=== PATIENT | female | born 1940 | race Caucasian/White ===

== ENCOUNTER → 2017-09-25 09:45 | Outpatient (CLI) | payer MEDICARE, BC, SELFPAY ==
--- NOTE | 2017-09-25 09:49 | MM_ITS ---
MM Dig screening mamm BI w/CAD CAD Screening COMPARISON: Digital mammograms 08/15/2013 and 09/04/2014 INDICATION: There is no personal or family history of breast cancer TECHNIQUE: Standard CC and MLO images were obtained. R2 CAD reviewed. FINDINGS: Mild to moderate scattered fiber glandular densities are seen throughout both breasts and the findings are bilateral and symmetrical. There are couple benign-appearing calcifications in each breast. There is no suspicious lesion and there are no suspicious microcalcifications. IMPRESSION: Fibrofatty parenchyma no suspicious lesion seen BI-RADS Category: 2 Benign Finding(s) RECOMMENDED FOLLOW-UP: 1YR - 1 YEAR FOLLOW-UP (A letter has been sent to the patient regarding results of the study.)
== END ==
PROVIDERS: Family Provider Family Medicine; PCP Family Medicine; Visit Provider Family Medicine
DX: Z12.31 Encounter for screening mammogram for malignant neoplasm of breast (principal)
CPT/HCPCS: 77067

== ENCOUNTER → 2018-03-21 09:08 | Outpatient (POV) | payer MEDICARE, BC, SELFPAY | PROVIDERS: Visit Provider Dermatology | DX: Z00.00 Encounter for general adult medical examination without abnormal findings (principal) ==

== ENCOUNTER → 2018-09-27 10:50 | Outpatient (CLI) | payer MEDICARE, BC, SELFPAY ==
--- NOTE | 2018-09-27 10:56 | MM_ITS ---
MM Dig screening mamm BI w/CAD ORDERING PHYSICIAN : Caridad Newton MD PATIENT AGE: 77 years GENDER: Female COMPARISON: July there were 2018/MRI INDICATION: ITS.REASON: SCREENING TECHNIQUE: Standard CC and MLO images were obtained. R2 CAD reviewed. FINDINGS: Moderate residual fibroglandular elements anterior right and left breast there is similar and unchanged since previous studies on cc views..... Otherwise fatty replacement throughout the deep breast bilaterally. RIGHT BREAST:Stable right breast Today's study show no new areas of concern. No interval change. No dominant mass nor suspicious calcifications either breast. Current fibroglandular pattern with minimal LEFT BREAST: On MLO view there is a area of slight increased density central breast, labeled X. Measures up to 8 x 9 mm size.-Most likely is a summation shadow but would suggest spot views to further evaluate since it is more evident than last years/previous years studies.. Although The MLO view from 2009 does show somewhat similar appearance Suggest spot MLO, 90 degree, with CC view of lateral left breast IMPRESSION: ------- Left mammogram,: . Minimal area of relative focal density on MLO view only-most likely a summation shadow, but would benefit from spot views to further evaluate Right breast. Stable follow-up in one year BI-RADS Category: 0 Need Additional Imaging Evaluation RECOMMENDED FOLLOW-UP: IMM - IMMEDIATE FOLLOW-UP RECOMMENDED Spot views left breast (A letter has been sent to the patient regarding results of the study.)
== END ==
PROVIDERS: PCP Family Medicine; Visit Provider Family Medicine
DX: Z12.31 Encounter for screening mammogram for malignant neoplasm of breast (principal)
CPT/HCPCS: 77067

== ENCOUNTER → 2018-10-11 13:28 | Outpatient (CLI) | payer MEDICARE, BC, SELFPAY ==
--- NOTE | 2018-10-11 13:31 | MM_ITS ---
MM Dig mamm DX unilat LT CAD, US breast LT complete INDICATION: Follow-up abnormal screening mammogram ORDERING PHYSICIAN: Caridad Newton MD PATIENT AGE: 77 years COMPARISON: 09/27/2018, 09/25/2017 TECHNIQUE: Problem-solving views performed along with a left breast ultrasound FINDINGS: There is persistent area of asymmetric density in the retroareolar region of the left breast. Ill-defined and may be due to asymmetric fibroglandular tissue. A 4 mm area of asymmetric density is persistent in the medial aspect of the left breast possibly corresponding to this abnormality as seen on the MLO view. This has been present dating back to 09/04/2014. The asymmetric density is not identified on the ML view. Left breast ultrasound: At the 10:00 region there is persistent 4 mm hypoechoic nodule surrounded by an area of increased echogenicity. This may account for the mammographic abnormality. This is mildly suspicious and biopsy is suggested. No other significant anomalies are evident. IMPRESSION: Mildly suspicious hypoechoic nodule at 10:00 at 4 mm which may correspond to the mammographic abnormality. Recommend sonographic guided mammotome biopsy. BI-RADS Category: 4 Suspicious Abnormality-Biopsy Considered all RECOMMENDED FOLLOW-UP: BIO - BIOPSY RECOMMENDED (A letter has been sent to the patient regarding results of the study.)
== END ==
PROVIDERS: PCP Family Medicine; Visit Provider Family Medicine
DX: R92.8 Other abnormal and inconclusive findings on diagnostic imaging of breast (principal)
CPT/HCPCS: 76641; 77065

== ENCOUNTER → 2020-10-25 09:14 | Outpatient (CLI) | payer MEDICARE, SELFPAY ==
[2020-10-25 11:05] LABS: Coronavirus 19 IgG Antibody Positive (Negative); Coronavirus 19 IgM Antibody Negative (Negative)
== END ==
PROVIDERS: Visit Provider Ophthalmology
DX: Z01.812 Encounter for preprocedural laboratory examination (principal)
CPT/HCPCS: 36415; 86328

== ENCOUNTER 2020-10-26 08:17 | Day surgery (SDC) | payer MEDICARE, SELFPAY ==
[2020-10-26 09:59] VITALS: BP 136/60; PULSE 61; RESP 18; TEMP 36.1; O2SAT 100
[2020-10-26 11:06] VITALS: BP 138/74; PULSE 58; RESP 16; TEMP 36.5; O2SAT 100
== END 2020-10-26 11:12 | disposition home or self-care (01) ==
LOC: OUTP 08:21
PROVIDERS: PCP Family Medicine; Visit Provider Ophthalmology
PROC: (CPT 66821; principal; 2020-10-26 09:00)
DX: H26.493 Other secondary cataract, bilateral (principal); H04.123 Dry eye syndrome of bilateral lacrimal glands; Z96.1 Presence of intraocular lens; E78.5 Hyperlipidemia, unspecified; I10 Essential (primary) hypertension; F41.9 Anxiety disorder, unspecified; Z80.42 Family history of malignant neoplasm of prostate; Z82.49 Family history of ischemic heart disease and other diseases of the circulatory system; Z82.3 Family history of stroke; Z79.82 Long term (current) use of aspirin; Z79.899 Other long term (current) drug therapy
CPT/HCPCS: 66821

== ENCOUNTER → 2021-12-13 08:32 | Outpatient (CLI) | payer MEDICARE, SELFPAY ==
--- NOTE | 2021-12-13 08:38 | XR_ITS ---
FINAL REPORT CLINICAL HISTORY: HIP PAIN FINDINGS: 2 views of the left hip with an AP pelvis were obtained. There is no acute fracture or dislocation. The joint spaces are intact. There are mild hypertrophic changes at the acetabular margins. There are no soft tissue abnormalities. IMPRESSION: Mild hypertrophic changes at the acetabular margins. Reviewed, Interpreted and Dictated by Dexter Mora MD Transcribed by Jay Anaya Authenticated by Dexter Mora MD on 12/13/2021 10:19:[address] [facility]
--- NOTE | 2021-12-13 08:40 | XR_ITS ---
FINAL REPORT CLINICAL HISTORY: HIP PAIN FINDINGS: 4 views were obtained. There is no acute fracture. There is 15 degrees of lumbar scoliosis convex to the left. There is abnormal loss of disc height from L1-L2 through L5-S1. There is prominent facet sclerosis in the lower lumbar spine. There is no malalignment. IMPRESSION: Diffuse changes of degenerative disc disease with scoliosis and facet sclerosis. Reviewed, Interpreted and Dictated by Dexter Mora MD Transcribed by Jay Anaya Authenticated by Dexter Mora MD on 12/13/2021 10:19:14 AM [facility]
--- NOTE | 2021-12-13 08:57 | XR_ITS ---
FINAL REPORT CLINICAL HISTORY: HIP PAIN FINDINGS: 2 views of the right hip were obtained. There is no acute fracture or dislocation. The joint spaces are intact. There are mild hypertrophic changes at the acetabular margin. There are no soft tissue abnormalities. IMPRESSION: Mild hypertrophic changes at the acetabular margin. Reviewed, Interpreted and Dictated by Dexter Mora MD Transcribed by Jay Anaya Authenticated by Dexter Mora MD on 12/13/2021 10:19:[address] [facility]
== END ==
PROVIDERS: PCP Family Medicine; Visit Provider Family Medicine
DX: M54.50 Low back pain, unspecified (principal); M25.552 Pain in left hip; M25.551 Pain in right hip
CPT/HCPCS: 72110; 73502

== ENCOUNTER → 2021-12-16 08:59 | Outpatient (CLI) | payer MEDICARE, SELFPAY ==
--- NOTE | 2021-12-16 09:02 | XR_ITS ---
FINAL REPORT TECHNIQUE: Bone densitometry calculations of the lumbar spine and left hip were obtained. CLINICAL HISTORY: . osteoporosis FINDINGS: DEXA BONE DENSITY AXIAL SKELETON Using L1-4, the bone mineral density of the spine is 1.007 g/cm2, corresponding to T-score of -0.4. These values may be artificially elevated secondary to sclerosis. Using the left hip, the bone mineral density of the femoral neck is 0.493 g/cm2, corresponding to a T-score of is -3.2. Using the right hip, the bone mineral density of the femoral neck is 0.501 g/cm2, corresponding to a T-score of -3.1. NOTE: T-score: Standard deviation compared with peak bone mass of young adult mean. *Following the recommendations of the International Society of Bone Densitometry, classification of hip BMD is based on the lower of two T-scores; total hip or femoral neck. IMPRESSION: Osteoporosis: Lowest T-score is at or below -2.5. This patient's T-score meets the World Health Organization criteria for osteoporosis. Reviewed, Interpreted and Dictated by Dexter Mora MD Transcribed by Janeen Samuel Authenticated by Dexter Mora MD on 12/16/2021 11:04:29 AM [facility]
== END ==
PROVIDERS: PCP Family Medicine; Visit Provider Family Medicine
DX: Z78.0 Asymptomatic menopausal state (principal); M54.50 Low back pain, unspecified; M25.559 Pain in unspecified hip
CPT/HCPCS: 77080